=== PATIENT | male | born 1970 | race Caucasian/White ===

== ENCOUNTER → 2020-03-22 09:31 | Outpatient (CLI) | payer OTHER, SELFPAY ==
[2020-03-23 09:36] LABS: COVID19 Sendout Not Detected (Not Detect)
== END ==
PROVIDERS: Visit Provider Physician Assistant
DX: Z11.59 Encounter for screening for other viral diseases (principal)
CPT/HCPCS: 87635

== ENCOUNTER → 2020-04-18 14:16 | Outpatient (CLI) | payer OTHER, SELFPAY ==
[2020-04-20 17:24] LABS: COVID19 Sendout Not Detected (Not Detect)
== END ==
PROVIDERS: Visit Provider Nurse Practitioner
DX: Z11.59 Encounter for screening for other viral diseases (principal)
CPT/HCPCS: 87635